=== PATIENT | male | born 1995 | race Caucasian/White ===

== ENCOUNTER 2025-02-20 06:04 | Day surgery (SDC) | payer OTHER ==
[~2025-02-20] VITALS: Ht 172.7 cm; Wt 86.2 kg
[2025-02-20] MEDS ORDERED: LIDOCAINE 2% 100MG/5ML SDV (FOR ANES.) As Ordered ONE (06:27)
[2025-02-20] MEDS ORDERED: propofoL 200 MG/20 ML VIAL As Ordered ONE (06:27)
[2025-02-20] MEDS ORDERED: MIDAZOLAM INJ 2MG/2ML VIAL As Ordered ONE (06:29)
[2025-02-20] MEDS ORDERED: fentaNYL 100 MCG/2 ML INJECTION As Ordered ONE (06:29)
[2025-02-20] MEDS ORDERED: ACETAMINOPHEN 1000MG/100ML IV BAG As Ordered ONE (06:33)
[2025-02-20] MEDS ORDERED: KETOROLAC 30 MG/ML 1ML VIAL As Ordered ONE (06:38)
[2025-02-20] MEDS ORDERED: LR 1,000 ML IV SCH (06:40)
[2025-02-20] MEDS: ceFAZolin SOD 2 GM IV ONCE IV ONE (07:33)
[2025-02-20] MEDS: LIDOCAINE 1% SDV 30ML VIAL As Ordered ONE (07:36)
[2025-02-20] MEDS ORDERED: ONDANSETRON 4MG 2ML VIAL As Ordered ONE (07:42)
[2025-02-20] MEDS ORDERED: KETAMINE HCL 200MG/20ML VIAL As Ordered ONE (08:04)
[2025-02-20 09:12] VITALS: BP 124/60; TEMP 97.3; O2SAT 96
== END 2025-02-20 09:24 | disposition home or self-care (01) ==
LOC: M SDC 06:04
PROVIDERS: ATTEND Podiatrist Foot & Ankle Surgery
DX: T84.84XA Pain due to internal orthopedic prosthetic devices, implants and grafts, initial encounter (principal); Y79.2 Prosthetic and other implants, materials and accessory orthopedic devices associated with adverse incidents; M24.575 Contracture, left foot; Z88.8 Allergy status to other drugs, medicaments and biological substances
CPT/HCPCS: 20680; 28270; 76000; J0131; J0665; J0690; J1100; J1885; J2250; J2405; J3010

== ENCOUNTER 2025-05-17 10:16 | Inpatient (IN) | payer OTHER ==
[~2025-05-17] VITALS: Ht 172.7 cm; Wt 90.0 kg
[2025-05-17 10:58] LABS: PLATELET COUNT, AUTOMATED 180 10^3/uL (150-450)
[2025-05-17 11:19] LABS: ETHYL ALCOHOL (ETHANOL) < 0.003 % (0.000-0.010)
[2025-05-17 11:20] LABS: SALICYLATE LEVEL < 3.0 MG/DL (<30)
[2025-05-17 11:21] LABS: ALT/SGPT 17 U/L (7.0-40); AST/SGOT 23 U/L (<34); CALCIUM LEVEL 9.0 MG/DL (8.5-10.1); CARBON DIOXIDE LEVEL 25 MMOL/L (20-31); CHLORIDE LEVEL 106 MMOL/L (98-107); CREATININE FOR GFR 0.94 MG/DL (0.70-1.30); GLOMERULAR FILTRATION RATE > 90.0 (>60); POTASSIUM SERUM 4.1 MMOL/L (3.5-5.1); SODIUM LEVEL 141 MMOL/L (136-145)
[2025-05-17 11:29] LABS: AMPHETAMINES LEVEL URINE NEGATIVE (NEGATIVE); BARBITURATES URINE NEGATIVE (NEGATIVE); BENZODIAZEPINES URINE NEGATIVE (NEGATIVE); COCAINE METABOLITE URINE NEGATIVE (NEGATIVE); METHADONE URINE NEGATIVE (NEGATIVE)
[2025-05-17 11:30] LABS: CANNABINOIDS URINE NEGATIVE (NEGATIVE); OPIATES URINE NEGATIVE (NEGATIVE); PHENCYCLIDINE URINE NEGATIVE (NEGATIVE)
[2025-05-17] MEDS ORDERED: HOME MED LIST COMPLETE! XX SCH (13:20)
[2025-05-17] MEDS ORDERED: IBUPROFEN 400 MG TAB PO PRN (14:30)
[2025-05-17] MEDS ORDERED: MOM 30 ML SUSPENSION UDC PO PRN (14:30)
[2025-05-17] MEDS ORDERED: ACETAMINOPHEN 325 MG TAB PO PRN (14:30)
[2025-05-17] MEDS ORDERED: MAALOX 30 ML SUSP *UDC PO PRN (14:30)
[2025-05-17] MEDS ORDERED: GLUCAGON INJ 1 MG VIAL SC PRN (15:10)
[2025-05-17] MEDS ORDERED: DEXTROSE 50% 50 ML SYRINGE IV PRN (15:10)
[2025-05-17] MEDS ORDERED: GLUCOSE 4 GM CHEW PO PRN (15:10)
[2025-05-17 17:06] VITALS: BP 131/72; TEMP 96.7; O2SAT 100
[2025-05-17] MEDS ORDERED: INSULIN LISPRO (NovoLOG) PER UNIT SC SCH ×2 (17:30→21:00)
[2025-05-17] MEDS: traZODone 50 MG TAB PO PRN (20:08)
[2025-05-18 06:35] VITALS: BP 133/69; TEMP 97.6; O2SAT 100
[2025-05-18] MEDS: NICOTINE 7 MG/24 HR TRANSDERMAL TD ONE (09:53)
[2025-05-18] MEDS: ESCITALOPRAM OXALATE 10 MG TABLET PO SCH (11:22)
[2025-05-18 15:17] VITALS: BP 143/74; TEMP 97.6; O2SAT 98
[2025-05-18] MEDS: traZODone 50 MG TAB PO SCH (20:20)
[2025-05-19 06:38] VITALS: BP 123/73; TEMP 97.5; O2SAT 98
[2025-05-19] MEDS: NICOTINE 14 MG/24 HR TRANSDERMAL TD SCH (10:26)
[2025-05-19 15:30] VITALS: BP 140/74; TEMP 97.9; O2SAT 96
[2025-05-20 06:34] VITALS: BP 136/79; TEMP 97.9; O2SAT 96
[2025-05-20] MEDS: NICOTINE 21 MG/24 HR 1 EA TRANSDERMAL TD SCH (12:43)
[2025-05-20 16:30] VITALS: BP 140/75; TEMP 98.4; O2SAT 98
[2025-05-21 06:37] VITALS: BP 158/79; TEMP 98.2; O2SAT 100
[2025-05-21] MEDS ORDERED: LEXA1TAB PO (09:52)
[2025-05-21] MEDS ORDERED: TRAZ-252 PO (09:52)
[2025-05-21] MEDS ORDERED: NICO21PAT TD (09:52)
== END 2025-05-21 11:13 | disposition home or self-care (01) | DRG 885 ==
LOC: M ED 10:16 → M ED INP 14:28 → M PSY 15:55
PROVIDERS: ADMIT General Practice; ATTEND Psychiatry & Neurology Psychiatry
DX: F33.2 Major depressive disorder, recurrent severe without psychotic features (principal); R45.851 Suicidal ideations; F41.1 Generalized anxiety disorder; Z63.0 Problems in relationship with spouse or partner; Z56.89 Other problems related to employment; F48.1 Depersonalization-derealization syndrome; F17.290 Nicotine dependence, other tobacco product, uncomplicated; Z88.5 Allergy status to narcotic agent